=== PATIENT | female | born 1975 | race Caucasian/White ===

== ENCOUNTER 2018-10-10 21:20 | Emergency (ER) | payer OTHER ==
[~2018-10-10] VITALS: Ht 152.4 cm; Wt 59.4 kg
[2018-10-10 21:38] LABS: ABSOLUTE LYMPHOCYTES 0.9 thou/uL (0.8-5.3); ABSOLUTE MONOCYTES 0.5 thou/uL (0.0-1.2); ABSOLUTE NEUTROPHILS 5.5 thou/uL (1.6-8.1); BASOPHILS 0.6 %; EOSINOPHILS 0.1 %; HEMATOCRIT 32.6 % (37.0-47.0); HEMOGLOBIN 11.1 gm/dL (12.0-15.0); MCH 28.7 pg (26.0-34.0); MCV 84.4 fL (80.0-100.0); MONOCYTES 6.8 %; MPV 11.1 fl. (7.2-11.1); NUCLEATED RBCS 0 /100WBC; PLATELET COUNT* 174 thou/uL (150-400); POLYS 79.5 %; RBC 3.86 mil/uL (4.20-5.00); RDW-CV 15.1 % (10.5-14.5)
[2018-10-10 21:49] LABS: PROTIME 10.5 Seconds (9.20-11.50)
[2018-10-10 21:51] LABS: CALCIUM 8.6 mg/dL (8.5-10.1); CREATININE 0.9 mg/dL (0.6-1.3); POTASSIUM 3.7 mmol/L (3.5-5.1)
[2018-10-10 21:56] LABS: ALBUMIN 3.7 g/dL (3.4-5.0); TOTAL BILIRUBIN 0.7 mg/dL (<0.1-1.0); TOTAL PROTEIN 7.1 g/dL (6.4-8.2)
[2018-10-10 22:57] LABS: URINE BILIRUBIN NEGATIVE (Negative); URINE BLOOD 3+ (Negative); URINE CLARITY CLEAR; URINE COLOR YELLOW; URINE GLUCOSE-RANDOM NEGATIVE (Negative); URINE KETONES NEGATIVE (Negative); URINE LEUKOCYTES-REFLEX TRACE (Negative); URINE NITRITE-REFLEX NEGATIVE (Negative); URINE PROTEIN NEGATIVE (Negative); URINE UROBILINOGEN 0.2 E.U./dl (0.2-1.0)
[2018-10-10 23:04] LABS: MUCUS None Seen strn/LPF (None Seen); SQUAMOUS >10 Many /LPF (0-3); URINE RBC 3-10 Few /HPF (0-2); URINE WBC-REFLEX 0-5 Rare /HPF (0-5)
[2018-10-10 23:05] LABS: BACTERIA-REFLEX None Seen /HPF (None Seen); CASTS None Seen /LPF (None Seen); CRYSTALS None Seen /LPF (None Seen)
[2018-10-10 23:59] VITALS: BP 119/66
--- NOTE | 2018-10-12 09:00 | EKG ---
[place] [address] ELECTROCARDIOGRAM REPORT Name: YURI CANAS Room: [facility]#: [id number] Admission: 10/10/18 Attend Phys: Discharge: 10/11/18 Date of : 71 Report #: [id number] THIS REPORT FOR: //name// [facility] ED Test Date: 2018-10-10 Test Time: 21:51:08 Pat Name: YURI CANAS Department: Room: Gender: F Unit Coordinator: [place] : 1975 Requested By: Parul Mahoney Order Number: [id number] MD: Melecio Bartholomew Measurements Intervals [place] Rate: 71 P: 47 DC: 167 QRS: 65 QRSD: 96 T: 36 QT: 408 QTc: 444 Interpretive Statements Sinus rhythm Nonspecific T-wave flattening No previous ECG available for comparison Electronically Signed On 10-12-2018 9:00:36 CDT by Melecio Bartholomew [email or web address] <ELECTRONICALLY SIGNED> By: Melecio Bartholomew MD, [facility] 10/12/18 0900 215 [id number] Melecio Bartholomew MD, FAC /EPI
== END 2018-10-11 | disposition home or self-care (01) ==
LOC: M.ERS 21:20
PROVIDERS: Emergency Medicine
DX: G89.18 Other acute postprocedural pain (principal); R06.00 Dyspnea, unspecified; Z90.710 Acquired absence of both cervix and uterus; Z98.890 Other specified postprocedural states; Z88.5 Allergy status to narcotic agent